=== PATIENT | male | born 1930 | race Caucasian/White ===

== ENCOUNTER 2016-10-12 09:03 | Emergency (ER) | payer MEDICARE, OTHER ==
--- NOTE | ~2016-10-12 | ER ---
PATIENT'S NAME: RIO SUTTON [facility] AGE: 86 Y [address] ROOM: [place] [address] LOCATION: [facility] ADMIT DATE: 10/12/2016 ER/Outpatient Report DISCHARGE DATE: 10/12/2016 FAMILY PHYSICIAN: Physician, Unknown ATTENDING PHYSICIAN: Eber Loya CHIEF COMPLAINT: Collapse. HISTORY OF PRESENT ILLNESS: The patient arrives by ambulance from [facility]. The patient was there to have his wounds evaluated. Around 3 o'clock this morning, the patient was at his original home in [place], [place]. At that time, he did have fall. His daughter got him up but he refused to come in. He has some significant skin tears that they were going to have evaluated; however, on the way in to [facility], he went to sit down on his walker in a very unusual position, which caused him to have a very unusual interaction and he seemed to overly confused and not with it at that time. He did not lose consciousness and did not pass out. He is not complaining of any pain anywhere. He has no known heart issues but he does have some kidney issues according to the family. There has been no syncope to this point. He has otherwise been doing okay. No reports of any infections or other similar symptoms. PAST MEDICAL HISTORY: Notable for heart disease, hypertension, significant hearing difficulty, aplastic anemia, rheumatoid arthritis, pneumonia about a month ago. MEDICATIONS: See attached list. ALLERGIES: NO KNOWN MEDICAL ALLERGIES. SOCIAL HISTORY: Originally from [place]. Currently resides with a daughter in [place], [place], no alcohol, tobacco, or drug use at this time. PAST SURGICAL HISTORY: Unknown. REVIEW OF SYSTEMS: All systems were reviewed and negative except as noted in the physical exam though it is unclear how much the patient understands. PHYSICAL EXAMINATION: PATIENT'S NAME: RIO SUTTON [facility] AGE: 86 Y [address] ROOM: [place] [address] LOCATION: [facility] ADMIT DATE: 10/12/2016 ER/Outpatient Report DISCHARGE DATE: 10/12/2016 FAMILY PHYSICIAN: Physician, Unknown ATTENDING PHYSICIAN: Eber Loya VITAL SIGNS: Blood pressure 121/68, pulse 64, respiratory rate 18, temperature 97.3, SpO2 is 96% on 4 L nasal cannula. Pain 0/10. GENERAL: Age-appropriate male. No obvious pain or distress. Resting comfortably on the exam table. NEUROLOGIC: The patient is awake. He is alert. He speaks with clear speech with some mumbling, but is easily understood. He is very hard of hearing and often times does not, in regard this examiner, however, nurses have no issue with him. He does follow command in all extremities. There is no asymmetry in piecer or upper extremity strength. He does have no asymmetry on the lower extremities. HEENT: Normocephalic and atraumatic to the calvarium. The left temporal region does have some bruising. Extraocular movements are intact. Eyes are PERRL. Oropharynx is clear with no abnormal occlusion. NECK: Supple. Trachea is midline. CHEST/HEART: Regular rate and rhythm with no murmurs. The lungs are grossly clear to auscultation bilateral. ABDOMEN: Soft, nontender, and nondistended. No rebound or guarding. BACK: Normal to inspection and palpation. No CVA tenderness. EXTREMITIES: Warm and well perfused with no deformities. SKIN: Notable for several large skin tears over the left forearm and left arm on the posterior aspect. The right medial aspect of the distal arm has a small skin tear as well. Not amenable to suture. LABS AND X-RAYS: Lactate is 3.2, WBC is 12.3, hemoglobin 12.3, platelets of 118. INR is less than 1. CMS; no electrolyte abnormalities. Creatinine 2.0. GFR is 32. LFTs notable for AST of 55. CK-MB and troponin below threshold, repeat remained below threshold. Urinalysis without any abnormalities. EKG; initially with left bundle does not meet Sgarbossa criteria. No signs of other or acute ischemia, repeat unchanged. Head CT unremarkable. Chest x-ray unremarkable per my read. IMPRESSION: 1. Fall, mechanical with transient episodes. 2. Multiple large skin tears. 3. Chronic renal disease. EMERGENCY DEPARTMENT COURSE: The patient was seen and evaluated. CT scan of the brain was unremarkable. The patient remained otherwise asymptomatic while in the ER. He is always on 2 L after his recent hospitalization for pneumonia. There is no evidence of infection at this time. Recommend and encourage hydration. Wound cares were discussed. Skin tears were cleaned per RN. The patient should follow up with his new provider in the [place], [place] area upon arrival. I believe he is safe for discharge at this time. I spoke with all of the daughters. He was discharged PATIENT'S NAME: RIO SUTTON [facility] AGE: 86 Y [address] ROOM: [place], [place] [address] LOCATION: [facility] ADMIT DATE: 10/12/2016 ER/Outpatient Report DISCHARGE DATE: 10/12/2016 FAMILY PHYSICIAN: Physician, Unknown ATTENDING PHYSICIAN: Eber Loya in stable condition. MD JUDI MC/vijay /[id number] d: 10/12/162024 t: 10/13/16 0816, OUTPATIENT REPORT
[2016-10-12 09:34] LABS: BASOPHIL % 0.3 %; EOSINOPHIL # 0.1 K/uL (0.0-0.5); EOSINOPHIL % 0.6 %; HEMATOCRIT 38.2 % (33.0-50.0); HEMOGLOBIN 12.3 g/dL (11.0-16.0); IMMATURE GRANULOCYTE # 0.1 K/uL (0.0-0.3); IMMATURE GRANULOCYTE % 0.8 %; LYMPHOCYTE # 0.9 K/uL (0.8-4.0); LYMPHOCYTE % 7.1 %; MCH 32.3 pg (27.0-34.0); MCHC 32.2 gm/dL (32.0-36.5); MCV 100.3 fl (83.0-98.0); MONOCYTE # 0.8 K/uL (0.0-1.0); MONOCYTE % 6.3 %; MPV 9.4 fl (9.4-12.4); NEUTROPHIL # (ANC) 10.4 K/uL (1.4-9.0); NEUTROPHIL % 84.9 %; NRBC % 0 /100WBC (0-0.00); PLATELET COUNT 118 K/uL (150-450); RBC 3.81 M/uL (3.50-5.50); RDW-CV 13.9 % (11.9-14.6); WBC 12.3 K/uL (4.0-11.0)
[2016-10-12 09:42] LABS: INR - (THERAPEUTIC) 0.95 (0.92-1.07); PTT 22 SECONDS (25-32)
[2016-10-12 09:54] LABS: ALBUMIN 3.2 gm/dL (3.5-5.0); ALK PHOS 69 IU/L (33-138); ALT 58 IU/L (12-78); ANION GAP 15.3 (10.0-19.0); AST 55 IU/L (10-40); BLOOD UREA NITROGEN 30 mg/dL (6-24); CHLORIDE 102 mMol/L (96-110); CO2 32 mMol/L (22-32); ESTIMATED GFR (MDRD EQUATION) 32; POTASSIUM 4.3 mMol/L (3.7-5.1); SODIUM 145 mMol/L (135-145); TOTAL BILIRUBIN 0.5 mg/dL (0.0-1.5); TOTAL PROTEIN 6.5 g/dL (6.0-8.4)
[2016-10-12 11:33] LABS: BILIRUBIN URINE NEGATIVE (NEGATIVE); BLOOD URINE NEGATIVE /UL (NEGATIVE); COLOR URINE YELLOW (YELLOW); GLUCOSE URINE NEGATIVE (NEGATIVE); KETONE URINE NEGATIVE (NEGATIVE); LEUKOCYTES URINE NEGATIVE /UL (NEGATIVE); NITRITE URINE NEGATIVE (NEGATIVE); PH URINE 6.5 (4.0-8.0); PROTEIN URINE NEGATIVE (NEGATIVE); TURBIDITY URINE CLEAR (CLEAR); UROBILINOGEN URINE NORMAL (NORMAL)
[2016-10-12 11:34] LABS: CPK 69 IU/L (35-332)
== END 2016-10-12 13:08 | disposition disaster alternative care site (69) ==
LOC: GMED 09:03
PROVIDERS: Emergency Medicine
DX: S51.812A Laceration without foreign body of left forearm, initial encounter (principal); S41.112A Laceration without foreign body of left upper arm, initial encounter; I10 Essential (primary) hypertension; M06.9 Rheumatoid arthritis, unspecified; Z79.899 Other long term (current) drug therapy; Z86.79 Personal history of other diseases of the circulatory system; W19.XXXA Unspecified fall, initial encounter

== ENCOUNTER → 2016-10-12 | Outpatient (CLI) | payer MEDICARE, OTHER | END | disposition disaster alternative care site (69) | LOC: GAMB 11:37 | DX: R53.1 Weakness (principal); T14.8 Other injury of unspecified body region; D64.9 Anemia, unspecified; J18.9 Pneumonia, unspecified organism; Z79.52 Long term (current) use of systemic steroids; Z79.899 Other long term (current) drug therapy; W19.XXXA Unspecified fall, initial encounter | CPT/HCPCS: A0422; A0425; A0427 ==